=== PATIENT | female | born 1955 | race Caucasian/White ===

== ENCOUNTER → 2025-06-16 | Outpatient (CLI) | payer OTHER ==
[2025-06-16 15:33] LABS: Thyroid Stimulating Hormone 1.63 uIU/mL (0.360-4.800)
== END | disposition home or self-care (01) ==
LOC: LAB SHORT 11:45 → LAB 11:45
PROVIDERS: Hospitalist
DX: E03.9 Hypothyroidism, unspecified (principal)
CPT/HCPCS: 84439; 84443